=== PATIENT | female | born 2000 | race Caucasian/White ===

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

== ENCOUNTER 2020-01-13 20:44 | Emergency (ER) | payer BC ==
[~2020-01-13] VITALS: Ht 165.1 cm; Wt 63.8 kg
[2020-01-13 20:50] VITALS: BP 121/57
--- NOTE | 2020-01-13 21:33 | RAD ---
Study: CR ANKLE LEFT 3V Indication: Fall. Pain. Comparison: None Findings: No acute fracture seen at the ankle or throughout the partially assessed foot. Normal width of the medial and lateral gutters. Slight loss of osseous overlap at the distal syndesmosis on the oblique view however the patient is not weightbearing. The talar dome is unremarkable. Mildly edematous soft tissues at the lateral ankle. Small focus of ossification on the lateral view projecting at the lower margin of the calcaneocuboid joint is typical of an ossicle. Impression: 1. No acute fracture. Edematous lateral ankle soft tissues. 2. Upper limits of normal width of the distal syndesmosis though the patient is nonweightbearing. If there are clinical findings of a high ankle sprain and concern for syndesmotic injury, eventual follow-up/outpatient weightbearing radiographs would better assess for instability. Electronically signed by: VICTORIANO BILLS MD (01/13/2020 9:30 PM) [id number]
--- NOTE | 2020-01-13 21:45 | PHYS DOC ---
Past History Past Medical History: No Pertinent History Past Surgical History: No Surgical History Smoking: Non-smoker Alcohol Use: None Drug Use: None Adult General Chief Complaint Chief Complaint: ANKLE PROBLEM HPI HPI Patient is a 19-year-old female who presents to the emergency room complaining of left ankle pain. She was playing lacrosse at school and a girl rolled over it and she felt a pop in her ankle. She is been having a lot of pain with weightbearing. She denies any pain in her foot. She denies any other trauma. She has not noticed significant swelling. Review of Systems Review of Systems General: Denies fever, chills, sweats, fatigue Eyes: Denies drainage, blurred vision, eye redness HENT: Denies rhinorrhea, sore throat, earache Respiratory: Denies cough, shortness of breath, wheezing Cardiac: Denies edema, palpitations, chest pain GI: Denies abdominal pain, Nausea, vomiting MSK: Denies back pain, neck pain Skin: Denies rash, jaundice Neuro: Denies headache, dizziness Psychiatric: Denies SI/HI Allergies Allergies Allergies Coded Allergies Type Severity Reaction Last Updated Verified adhesive Allergy Unknown 12/20/18 Yes rizatriptan Allergy Unknown Shortness of Air 12/20/18 Yes Physical Exam Physical Exam General: Awake, alert, NAD. Well Nourished, well hydrated. Cooperative HEENT: Atraumatic, EOMI, PERRL, airway patent, moist oral mucosa Neck: Supple, trachea midline Respiratory: CTA bilaterally, normal effort, no wheezing/crackles CV: RRR, no murmur, cap refill <2 GI: Soft, nondistended, nontender, no masses MSK: Tenderness along the medial and lateral malleolus with minimal swelling, intact range of motion, intact sensation, normal capillary refill distally Skin: Warm, dry, intact Neuro: A&O x3, speech NL, sensory and motor grossly intact, no focal deficits Psych: Normal affect, normal mood, not suicidal or homicidal Current Patient Data Vital Signs Vital Signs Date Time Temp Pulse Resp B/P (MAP) Pulse Ox O2 Delivery O2 Flow Rate FiO2 01/13/20 20:50 97.9 100 20 121/57 (78) 97 Room Air EKG EKG [] Radiology/Procedures Radiology/Procedures [] Heart Score Risk Factors: Risk Factors: DM, Current or recent (<one month) smoker, HTN, HLP, family history of CAD, obesity. Risk Scores: Risk Factors: DM, Current or recent (<one month) smoker, HTN, HLP, family hist ory of CAD, obesity. Course & Med Decision Making Course & Med Decision Making Pertinent Labs and Imaging studies reviewed. (See chart for details) Patient is a 19-year-old female presents to the emergency room after an ankle injury. She does have malleolus tenderness. X-ray was done and was normal. I recommended to her that she follows up with orthopedic surgery if she continues to have pain with weightbearing after 2 days. I have recommended ibuprofen and icing with elevation. Patient's test results and vitals while in the ED were fully reviewed and discussed with the patient. Patient is stable and at this time does not need admission to the hospital. We have discussed strict return precautions and the importance of following up with their Primary Care Physician. Patient stated understanding and was given an opportunity to ask any questions. Patient is in agreement with plan. Dragon Disclaimer Dragon Disclaimer This electronic medical record was generated, in whole or in part, using a voice recognition dictation system. Departure Departure: Impression: Primary Impression: Ankle sprain Disposition: 01 DC HOME SELF CARE/HOMELESS Condition: STABLE Referrals: MIREYA GARCIA (PCP) Patient Instructions: Ankle Sprain HENRRY RICH MD Jan 13, 2020 21:45
== END 2020-01-13 21:53 | disposition home or self-care (01) ==
LOC: ER 20:44
DX: S93.402A Sprain of unspecified ligament of left ankle, initial encounter (principal); Z88.8 Allergy status to other drugs, medicaments and biological substances; X50.9XXA Other and unspecified overexertion or strenuous movements or postures, initial encounter; Y93.65 Activity, lacrosse and field hockey; Y92.218 Other school as the place of occurrence of the external cause; Y99.8 Other external cause status
CPT/HCPCS: 73610; 99283

== ENCOUNTER → 2021-06-21 | Outpatient (CLI) | payer BC ==
--- NOTE | 2021-06-21 16:23 | RAD ---
EXAMINATION: XR LEFT CLAVICLE, XR SHOULDER_LEFT 2+ VIEWS CLINICAL HISTORY: Left shoulder and clavicle pain. TECHNIQUE: XR LEFT CLAVICLE, XR SHOULDER_LEFT 2+ VIEWS Number of Images/Views: 3 shoulder, 2 clavicle COMPARISON: Chest radiograph 01/06/2019 FINDINGS: Glenohumeral and acromioclavicular joints maintained. No acute fracture. Small area of lucency in the dorsal aspect of the mid clavicle, nonspecific but essentially unchanged since 2019. No focal soft t issue swelling. IMPRESSION: No acute osseous abnormality. Electronically signed by: Mathew Elizabeth DO (06/21/2021 4:20 PM) [id number]
== END ==
LOC: RAD 15:38
PROVIDERS: ATTEND Orthopaedic Surgery
DX: S49.92XA Unspecified injury of left shoulder and upper arm, initial encounter (principal); M25.512 Pain in left shoulder; X58.XXXA Exposure to other specified factors, initial encounter; Y93.89 Activity, other specified; Y92.89 Other specified places as the place of occurrence of the external cause; Y99.8 Other external cause status
CPT/HCPCS: 73000; 73030